=== PATIENT | male | born 1965 | race Two or more races ===

== ENCOUNTER 2017-02-03 08:11 | Emergency (ER) | payer SELFPAY ==
[~2017-02-03] VITALS: Ht 172.7 cm; Wt 72.6 kg
[2017-02-03 08:29] VITALS: BP 124/85
== END 2017-02-03 08:54 | disposition home or self-care (01) ==
LOC: ER 08:11
DX: J02.9 Acute pharyngitis, unspecified (principal)

== ENCOUNTER 2017-02-27 09:34 | Emergency (ER) | payer OTHER ==
[~2017-02-27] VITALS: Ht 172.7 cm; Wt 79.8 kg
[2017-02-27 09:39] VITALS: BP 134/94
[2017-02-27] MEDS ORDERED: KETOROLAC TROMETH 60MG/2ML VIAL IM ONE (11:30)
[2017-02-27] MEDS ORDERED: ONDANSETRON ODT 4 MG TAB PO ONE (11:30)
== END 2017-02-27 12:27 | disposition home or self-care (01) ==
LOC: ER 09:34
DX: R51 Headache (principal); F41.1 Generalized anxiety disorder
CPT/HCPCS: 70450; 96372; 99284; J1885; Q0162

== ENCOUNTER 2017-05-29 09:26 | Emergency (ER) | payer SELFPAY ==
[~2017-05-29] VITALS: Ht 172.7 cm; Wt 77.1 kg
[2017-05-29 09:34] VITALS: BP 134/84
[2017-05-29] MEDS ORDERED: KETOROLAC TROMETH 60MG/2ML VIAL IM ONE (10:15)
== END 2017-05-29 10:29 | disposition home or self-care (01) ==
LOC: ER 09:26
DX: G89.29 Other chronic pain (principal); M54.5 Low back pain
CPT/HCPCS: 96372; 99283; J1885